=== PATIENT | female | born 1975 | race Caucasian/White ===

== ENCOUNTER 2017-06-28 06:56 | Observation (INO) | payer MEDICAID ==
[2017-06-28] MEDS ORDERED: SURGIFLO MATRIX KIT WITH THROMBIN TP ONE (07:40)
[2017-06-28] MEDS ORDERED: BUPIVACAINE 0.25% 30 ML SDV ONE (07:41)
[2017-06-28] MEDS ORDERED: THROMBIN (BOVINE) 20,000 UNIT VIAL TP ONE (07:41)
[2017-06-28] MEDS ORDERED: CHLORHEXIDINE GLUC HIBICLENS 118 ML BTL TP ONE (07:41)
[2017-06-28] MEDS ORDERED: BACITRACIN 50,000 UNITS/10 ML SYR IRR ONE (07:42)
[2017-06-28] MEDS ORDERED: ceFAZolin 2 GM/DEXTROSE 100 ML IV ONE (07:44)
[2017-06-28] MEDS ORDERED: LR 1,000 ML IV ONE (07:46)
[2017-06-28] MEDS ORDERED: LIDOCAINE 1% 2 ML INJ ID PRN (07:46)
[2017-06-28] MEDS ORDERED: MIDAZOLAM 2 MG/2 ML VIAL ONE (08:36)
[2017-06-28] MEDS ORDERED: MIDAZOLAM 2 MG/2 ML VIAL IVP ONE (08:37)
--- NOTE | 2017-06-28 08:38 | PDANEPAE ---
ANE History of Present Illness cervical athroplasty ANE Past Medical History - Cardiovascular History Hx Hypertension: No Hx Arrhythmias: No Hx Chest Pain: No Hx Coronary Artery / Peripheral Vascular Disease: No Hx CHF / Valvular Disease: No Hx Palpitations: No - Pulmonary History Hx COPD: No Hx Asthma/Reactive Airway Disease: No Hx Recent Upper Respiratory Infection: No Hx Oxygen in Use at Home: No Hx Sleep Apnea: No Sleep Apnea Screening Result - Last Documented: Negative - Neurologic History Hx Cerebrovascular Accident: No Hx Seizures: No Hx Dementia: No - Endocrine History Hx Diabetes: No - Renal History Hx Renal Disorders: No - Liver History Hx Hepatic Disorders: No - Neurological & Psychiatric Hx Hx Neurological and Psychiatric Disorders: Yes Neurological / Psychiatric History Comment: weakness R arm-hx of pain,N,T R arm/ shoulder. 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 hx of herniated disc-lumbar. Erbbs-Klumpkeys Palsy secondary to . - Cancer History Hx Cancer: No - Congenital Disorder History Hx Congenital Disorders: No - GI History Hx Gastrointestinal Disorders: No - Chronic Pain History Chronic Pain: No - Surgical History Prior Surgeries: none ANE Review of Systems - Exercise capacity METS (RN): 5 METS ANE Patient History - Allergies Allergies/Adverse Reactions: amoxicillin Allergy (Verified 06/23/17 11:03) Rash Penicillins Allergy (Verified 06/23/17 11:03) Rash - Home Medications Home Medications: NK [No Known Home Meds] 06/22/17 [Last Taken Unknown] - NPO status NPO Since - Liquids (Date): 06/27/17 NPO Since - Liquids (Time): 23:59 NPO Since - Solids (Date): 06/27/17 NPO Since - Solids (Time): 20:00 - Anes Hx Anes Hx: post operative nausea and vomiting - Smoking Hx Smoking Status: Never smoked - Family Anes Hx Family Hx Anesthesia Complications: none ANE Labs/Vital Signs - Vital Signs Blood Pressure: 129/70 Heart Rate: 73 Respiratory Rate: 18 O2 Sat (%): 96 Height: 167.64 cm Weight: 64.864 kg ANE Physical Exam - Airway Mallampati Score: Class 2 Mouth exam: normal dental/mouth exam - Pulmonary Pulmonary: no respiratory distress - Cardiovascular Cardiovascular: regular rate and rhythym - ASA Status ASA Status: I ANE Anesthesia Plan Anesthesia Plan: general endotracheal anesthesia
[2017-06-28] MEDS ORDERED: LIDOCAINE 2% 5 ML SDV ONE (08:40)
[2017-06-28] MEDS ORDERED: DEXAMETHASONE 4 MG/ML VIAL ONE (08:40)
[2017-06-28] MEDS ORDERED: ROCURONIUM 50 MG/5 ML VIAL ONE (08:40)
[2017-06-28] MEDS ORDERED: fentaNYL 100 MCG/2 ML INJ ONE ×2 (08:41→10:54)
[2017-06-28] MEDS ORDERED: PROPOFOL/EMULSION 500 MG/50 ML BOTTLE IV ONE (08:41)
[2017-06-28] MEDS ORDERED: REMIFENTANIL HCL 1 MG VIAL ONE (08:41)
[2017-06-28] MEDS ORDERED: PROPOFOL 200 MG/20 ML VIAL ONE (08:41)
[2017-06-28] MEDS ORDERED: ONDANSETRON 4 MG/2 ML VIAL ONE (09:15)
[2017-06-28] MEDS ORDERED: epHEDrine SULFATE 10 MG/ML SYR ONE ×2 (09:57)
[2017-06-28] MEDS ORDERED: SUGAMMADEX SODIUM 200 MG/2 ML VIAL IVP ONE (10:26)
[2017-06-28] MEDS ORDERED: MEPERIDINE 25 MG/ML SYR IVP PRN (10:43)
[2017-06-28] MEDS ORDERED: ALBUTEROL 3 ML DEYVIAL IH PRN (10:43)
[2017-06-28] MEDS ORDERED: ONDANSETRON 4 MG/2 ML VIAL IVP PRN ×2 (10:43→11:17)
[2017-06-28] MEDS ORDERED: NALOXONE HCL 0.4 MG/ML INJ IVP PRN (10:43)
[2017-06-28] MEDS ORDERED: LR 500 ML IV PRN (10:43)
--- NOTE | 2017-06-28 10:45 | POSTANESTH ---
Post Anesthetic Evaluation Cardiovascular Status: Normal, Stable Respiratory Status: Normal, Stable Level of Consciousness/Mental Status: Can Participate in Eval Pain Control: Adequate, Prn Tx Ordered Nausea/Vomiting Control: Adequate, Prn Tx Ordered Complications Possibly Related to Anesthesia: None Noted
[2017-06-28] MEDS ORDERED: HYDROmorphONE/DILAUDID 1 MG/ML SYR ONE (10:54)
[2017-06-28] MEDS: fentaNYL 100 MCG/2 ML INJ IVP PRN ×2 (10:56→11:09)
[2017-06-28] MEDS: HYDROmorphONE/DILAUDID 1 MG/ML SYR IVP PRN ×3 (10:57→11:32)
[2017-06-28] MEDS ORDERED: POLYETHYLENE GLYCOL 3350 17 GM PKT PO PRN (11:17)
[2017-06-28] MEDS ORDERED: diphenhydrAMINE 25 MG CAP PO PRN (11:17)
[2017-06-28] MEDS ORDERED: DIAZEPAM 5 MG TAB PO PRN (11:17)
[2017-06-28] MEDS ORDERED: BISACODYL 10 MG SUPP PR PRN (11:17)
[2017-06-28] MEDS ORDERED: LACTULOSE 20 GM/30 ML UDCUP PO PRN (11:17)
[2017-06-28] MEDS ORDERED: ONDANSETRON DISINTEGRATING 4 MG TAB PO PRN (11:17)
[2017-06-28] MEDS ORDERED: MAGNESIUM HYDROXIDE 30 ML UDCUP PO PRN (11:17)
--- NOTE | 2017-06-28 11:17 | POSTOPPROG ---
Post Op Note Date of Operation: 06/28/17 Surgeon: Pb Nowak [employer] Technician: Viridiana Felton PA-C Anesthesiologist: Kye Anesthesia: GET(General Endotracheal) Pre-op Diagnosis: Cervical stenosis Post-op Diagnosis: Same Procedure: C5/6 arthroplasty Inf/Abcess present in the surg proc area at time of surgery?: No Depth: Organ Space EBL: Minimal (20) SOAP Progress Note Assessment/Plan: Assessment: Plan: 06/28/17 11:15 S: Patient in PACU. Stable. Mild sore throat. O: NAD, VSS PERRL, EOMI CN II-XII grossly intact Neck soft, supple, no induration BUE 5/5 except right bicep 4/5 as was preop BLE 5/5 Sensation intact to lt touch incision dressin c/d/i A: 41 yo female sp C5/6 arthroplasty for RUE weakness P: Admit to med/surg Orders in PT.OT No restrictions other than heavy overhead lifting no collar Advance diet as tolerated Call with any questions or concerns Objective: Vital Signs Temp Pulse Resp BP Pulse Ox 36.9 C 73 16 129/70 H 96 06/28/17 10:42 06/28/17 08:38 06/28/17 10:42 06/28/17 08:38 06/28/17 08:38
[2017-06-28] MEDS ORDERED: HYDROCODONE/APAP 5/325 TAB PO PRN (11:24)
--- NOTE | 2017-06-28 11:33 | GOP ---
[f rep st] OPERATIVE REPORT DATE OF OPERATION: 06/28/2017 SURGEON: Pb Nowak MD NEUROSURGEON: Pb Nowak MD. RECREATIONAL VEHICLE REPAIRER: Colleen Chan PA-C. ANESTHESIA: General endotracheal. PREOPERATIVE DIAGNOSIS: Right C6 radiculopathy. POSTOPERATIVE DIAGNOSIS: Right C6 radiculopathy. PROCEDURE PERFORMED: 1. C5-6 anterior diskectomy and bilateral foraminal decompression. 2. C5-6 arthroplasty using Mobi-C artificial disk. 3. Use of intraoperative microscope. 4. Intraoperative neurophysiologic monitoring including somatosensory evoked potentials, motor evok ed potentials, and free run EMG. FINDINGS: Successful disk arthroplasty. SPECIMENS: There were no specimens. ESTIMATED BLOOD LOSS: 25 cc. INDICATIONS: The patient is a 41-year-old woman who presented with right deltoid and biceps weaknes s. She also has an Erb palsy from , but was found to have a very large soft disk herniation at C5-6 on the right side with significant foraminal stenosis. We discussed the option of anterior ce rvical diskectomy and fusion versus arthroplasty and she preferred arthroplasty. DESCRIPTION OF PROCEDURE: After informed consent was obtained from the patient, the patient was bro ught to the operating room and placed in a supine position on the operating table. A formal time-ou t was performed, identifying the patient by name, medical record number, and date of . Preoper ative antibiotics were given. The endotracheal tube was placed and general endotracheal anesthesia was smoothly induced. A spinal needle was taped to the side of the neck and lateral radiograph conf irmed the C5-6 level for the incision. At this point, the neck was prepped and draped in normal kathy rile fashion. 5 cc of 0.25% Marcaine with epinephrine was infiltrated in the skin for hemostasis. The skin incision was then made using a 10-blade and the subcutaneous tissues were dissected using m mona electrocautery. The skin was undermined over the platysma and the platysma was opened in l ine with its fibers. The avascular plane between the midline structures and the sternocleidomastoid was then dissected down to the anterior spine where the prevertebral fascia was opened. A disk spa ce marker was placed and the C5-6 interspace was localized. At this point, the longus colli muscles were taken down laterally giving good exposure and self-retaining retractors were placed. At this point, AP and lateral radiographs were obtained and this gave us a good midline where the [place] pin s were placed in the C5 and C6 vertebral bodies for distraction. At this point, the operative micro scope was brought onto the field and the remainder of the procedure was performed under high-power m agnification. Aggressive diskectomy was performed using Kerrison punches and pituitary forceps. Af ter the disk was removed, the cartilaginous endplates were removed with curettes. As we got to the back of the disk space, the remainder of the disk was removed and the posterior longitudinal ligamen t was opened. Kerrison punch was then used to remove the posterior osteophytes and the remainder of the disk. The posterior longitudinal ligament was opened and we carried this out into the right-si ded and left-sided foramen. On the right side foramen, a large free fragment of herniated disk was removed, giving her a wide foraminal decompression. At this point, the wound was copiously irrigate d using bacitracin irrigation and motor evoked potentials were stable, as well as the somatosensory evoked potentials. At this point, we used the sizers to size appropriately for a 5 mm x 15 mm x 15 mm Mobi-C device, then AP and lateral radiographs were performed with the sizer in place. Next, the disk arthroplasty was placed into the disk space and its position was checked using AP and lateral fluoroscopy. Once we were satisfied with the positioning, the insertion tools were removed, and aga in, the disk space was copiously irrigated using bacitracin irrigation. The [place] pins were remove d and the bone around the endplates was waxed. There was no further bleeding. The retractors were removed, and the wound was again copiously irrigated using bacitracin irrigation. The platysma was closed using interrupted 2-0 Vicryl. The deep dermis was closed using interrupted 2-0 Vicryl. The skin was closed using Dermabond. The patient was then awakened in the operating room, was transferr ed to PACU in stable condition. There were no operative complications. I was scrubbed and present for the entire procedure. All sponge and needle counts were correct at the end of the case. FLUIDS/URINE OUTPUT: Per the anesthesia record. DRAINS: There were no drains. /[id number]/MODL
[2017-06-28] MEDS: DIAZEPAM 2 MG TAB PO PRN ×2 (11:44→21:31)
[2017-06-28] MEDS: NS 1,000 ML IV SCH ×2 (12:53→21:34)
[2017-06-28] MEDS: IBUPROFEN 800 MG TAB PO SCH ×2 (13:03→21:30)
[2017-06-28] MEDS: ceFAZolin 2 GM/DEXTROSE 100 ML IV SCH (17:15)
[2017-06-28] MEDS: FAMOTIDINE 20 MG TAB PO SCH (21:30)
[2017-06-28] MEDS: SENNOSIDES/DOCUSATE SODIUM TAB PO SCH (21:31)
[2017-06-29] MEDS: ceFAZolin 2 GM/DEXTROSE 100 ML IV SCH (00:23)
[2017-06-29 05:28] VITALS: RESP 16
[2017-06-29] MEDS: IBUPROFEN 800 MG TAB PO SCH (05:33)
--- NOTE | 2017-06-29 07:58 | NEUSURGPN ---
Assessment/Plan: A: 41 yo female sp C5/6 arthroplasty for RUE weakness P: Continue Ibuprofen x2 weeks Optimize pain management Post op xrays pending No restrictions other than heavy overhead lifting no collar Advance diet as tolerated Dispo planning Call with any questions or concerns Subjective: Some neck soreness, arm strength and pain improved Objective: A&Ox3 MAEX4 5/5 and equal in BUE and BLE. Neck soft supple no edema. Dressing c/ d/i - Physician Discussed Patient with : She Neurosurgery Physical Exam - Vitals, I&O, Labs I and O 06/28/17 06/29/17 06/30/17 05:59 05:59 05:59 Intake Total 3225 Output Total 2405 Balance 820 Weight 64.864 kg Intake: Oral (ml) 1025 IV Intake (ml) 1200 IV Infused (ml) 1000 Ns 1,000 ml @ 75 mls/hr 900 IV CONT MAXX Rx#: [id number] ceFAZolin 2 GM/DEXTROSE 100 100 ml @ 200 mls/hr IV Q8H MAXX Rx#:[id number] Output: Urine (ml) 2400 Toilet 2400 Estimated Blood Loss (ml) 5 Other: Number of Voids Toilet 2 Vital Signs Temp Pulse Resp BP Pulse Ox 36.9 C 77 16 108/71 96 06/29/17 04:00 06/29/17 04:00 06/29/17 04:00 06/29/17 04:00 06/29/17 04:00 ICD10 Worksheet Patient Problems: Problems Problem Status Onset Cervical stenosis of spine Acute Cervical stenosis of spine Acute - ICD10 Problem Qualifiers (1) Cervical stenosis of spine (2) Cervical stenosis of spine
[2017-06-29 08:08] VITALS: BP 113/64; PULSE 62; O2SAT 95
[2017-06-29] MEDS: FAMOTIDINE 20 MG TAB PO SCH (08:19)
[2017-06-29] MEDS: SENNOSIDES/DOCUSATE SODIUM TAB PO SCH (08:19)
[2017-06-29 11:02] VITALS: TEMP 98.2
--- NOTE | 2017-06-29 11:56 | ASMTCMCOM ---
CM Note CM Note Notes: Reviewed chart; spoke w/ JUANY Campbell. Pt admitted for cervical stenosis of spine; s/p C5/6 arthropl asty. PT/OT evals ordered; still pending. Per notes, pt to discharge home today, independently w/ family support and no identified needs. JC avai l for any further issues or concerns. Date Signed: 06/29/2017 11:23 AM Electronically Signed By:Neetu Orta
--- NOTE | 2017-06-29 11:56 | ASMTCASEMG ---
Living Arrangements What is your living arrangement? Who do you live Answers: With Other (Not Family) with? Type Of Residence What kind of residence do you live in? Answers: House Type of Residence Facility Name Notes: 2-story house Stairs in Home Environment Answers: Yes Case Management Evaluation Functional: Able to return Home with Prior Level Answers: Yes Notes: Pt independent of Function/Care Discharge Plan Comments Coordination Status Comments Notes: Per notes, pt to discharge home independently w/ family/friend support when stable. Date Signed: 06/29/2017 11:53 AM Electronically Signed By:Neetu Orta
--- NOTE | 2017-06-29 11:56 | ASDISCHSUM ---
Discharge Information Plan Status:Home with No Needs Medically Cleared to Leave:06/29/2017 Discharge Date:06/29/2017 11:29 AM CM D/C Disposition:Home, Routine, Self-Care ADT D/C Disposition:Home, Routine, Self-Care Projected Discharge Date:06/29/2017 11:29 AM Transportation at D/C:Family Discharge Delay Reason: Follow-Up Date:06/29/2017 11:29 AM Discharge Slot: Final Diagnosis:Cervical Stenosis of Spine Placement Information Patient Contact Information Contact Name:SAE Relationship:Mother Address: Work Phone: City: [facility] Phone: [facility]/Zip Code: Email: Financial Information Financial Class: Primary Plan Desc:[employer] Primary Plan Number:[id number] Secondary Plan Desc: Secondary Plan Number: Assessment Information [facility] CM Progress Note CM Note CM Note Notes: Reviewed chart; spoke w/ JUANY Campbell. Pt admitted for cervical stenosis of spine; s/p C5/6 arthroplasty. PT/OT evals ordered; still pending. Per notes, pt to discharge home today, independently w/ family support and no identified needs. CM avail for any further issues or concerns. Date Signed: 06/29/2017 11:23 AM Electronically Signed By:Neetu Orta [facility] Initial CM Assessment Living Arrangements What is your living Answers: With Other (Not Family) arrangement? Who do you live with? Type Of Residence What kind of residence do Answers: House you live in? Type of Residence Facility Name Notes: 2-story house Stairs in Home Answers: Yes Environment Case Management Evaluation Functional: Able to Answers: Yes Notes: Pt independent return Home with Prior Level of Function/Care Discharge Plan Comments Coordination Status Comments Notes: Per notes, pt to discharge home independently w/ family/friend support when stable. Date Signed: 06/29/2017 11:53 AM Electronically Signed By:Neetu rOta Intervention Information
[2017-07-01] MEDS ORDERED: ENOXAPARIN 40 MG/0.4 ML SYR SC SCH (09:00)
== END 2017-06-29 11:29 | disposition home or self-care (01) ==
LOC: F3N 06:56
PROVIDERS: ADMIT Neurological Surgery; ATTEND Neurological Surgery
PROC: 00NY0ZZ Release Lumbar Spinal Cord, Open Approach (ICD-10-PCS; principal; 2017-06-28 08:45)
PROC: 0RR30JZ Replacement of Cervical Vertebral Disc with Synthetic Substitute, Open Approach (ICD-10-PCS; principal; 2017-06-28 08:45)
PROC: 4A10X4G Monitoring of Central Nervous Electrical Activity, Intraoperative, External Approach (ICD-10-PCS; principal; 2017-06-28 08:45)
DX: M50.222 Other cervical disc displacement at C5-C6 level (principal)
CPT/HCPCS: 22856; 72040; 76001; 97161; 97165; G0378; G8987; G8989; C1713; J0171; J0690; J1100; J1170; J2250; J2405; J2704; J3010